=== PATIENT | female | born 1995 | race Caucasian/White ===

== ENCOUNTER 2017-10-05 19:11 | Observation (INO) ==
--- NOTE | 2017-10-05 17:43 | OB/GYN Progress Note ---
Date of Encounter: 10/05/17 Time of Encounter: 17:32 - Assessment and Plan (1) 35 weeks gestation of Current Visit: Yes Status: Acute Patient came to L&D for reported elevated blood pressure and heart rate from her OBs office. Blood pressure in L&D 128/85 HR 112 Patient will be started on IV fluids monitoring PIH labs Subjective - Subjective Interval history: Ms. Huntley is a 22 year old female at 30w5d presents to L&D for concerns of elevated blood pressure, elevated heart rate and decreased movement. Patient states that she saw her physician in the office and was sent here. She states that he blood pressure is not normally elevated. She reports decreased movement and states that she only feels the baby move about once every hour. She states that she has had some contractions that occur when she gets up or moves. She states that they occur about ever 5 minutes. Patient denies any leaking of fluid, vaginal bleeding but admits to vaginal discharge that has been yellowish and white. She states that she has been drinking of plenty of fluids and has been drinking about 5 bottles of water a day. Antepartum ROS: loss of fluid, vaginal bleeding, contractions (States that she is having contractions when she gets up or moves.), no movement normal ( States that she feels like there has been decreased movement over the past 4 days) Objective - Exam FHR: category 1 Auscultation: bilateral: normal Abdomen: Present: normal appearance, soft, gravid
[2017-10-05 18:05] LABS: Basophils % 0.3 %; Eosinophils # 0.4 K/mcL (0.0-0.6); Eosinophils % 3.1 %; Hematocrit 38.6 % (35.3-44.9); Hemoglobin 13.3 g/dL (11.5-15.4); Immature Granulocytes % 0.9 % (0-4); Lymphocytes # 2.7 K/mcL (0.6-4.6); Lymphocytes % 19.4 %; Mean Corpuscular HGB Conc 34.5 g/dL (31.6-35.5); Mean Corpuscular Hemoglobin 31.2 pg (28.0-33.3); Mean Corpuscular Volume 90.6 fL (83.0-100.0); Mean Platelet Volume 10.8 fL (9.4-12.4); Monocytes # 0.8 K/mcL (0.0-1.3); Monocytes % 5.7 %; Neutrophils # 9.8 K/mcL (1.6-8.9); Platelet Count 153 K/mcL (140-400); Red Blood Count 4.26 M/mcL (3.82-4.97); Red Cell Distribution Width 12.8 % (11.5-14.5); Segmented Neutrophils % 70.6 %
[2017-10-05] MEDS: Ringers Solution, Lactated 1,000 ML IVC SCH ×2 (18:11→20:50)
[2017-10-05 18:15] LABS: Protein/Creatinine Ratio,Urine 0.16 mg/mg (0-0.20)
[2017-10-05 18:21] LABS: Alanine Aminotransferase 12 Units/L (0-55); Aspartate Amino Transferase 13 Units/L (5-34); BUN/Creatinine Ratio 10 (6-26); Lactate Dehydrogenase 212 Units/L (159-327); Uric Acid 2.8 mg/dL (2.6-6.0); eGFR For African Americans > 60 (> 60); eGFR For Non-African Americans > 60 (> 60)
[2017-10-05 18:28] LABS: Blood Urea Nitrogen 5 mg/dL (7-20)
[2017-10-05 18:36] LABS: Amphetamine Screen,Urine Negative ng/mL (Cutoff=1000); Barbiturate Screen,Urine Negative ng/mL (Cutoff=200); Benzodiazepines Screen,Urine Negative ng/mL (Cutoff=200); Cannabinoid Screen,Urine Negative ng/mL (Cutoff = 50); Cocaine Screen,Urine Negative ng/mL (Cutoff= 300); Opiate Screen,Urine Negative ng/mL (Cutoff=300); Phencyclidine Screen,Urine Negative ng/mL (Cutoff=25)
[2017-10-05] MEDS ORDERED: NIFEdipine 10 MG CAPSULE PO ONE (20:40)
[2017-10-05] MEDS ORDERED: Betamethasone Acet/SodPhos 6 MG/ML MDV IM SCH (21:30)
--- NOTE | 2017-10-06 00:10 | OB Labor Progress Note ---
Date of Encounter: 10/06/17 Time of Encounter: 00:08 Labor Progress Note - Subjective Subjective: Pt doing ok, reports uc's less strong. No VB or LOF. - Cervix Cervix: /70/-2 - Heart Tones Heart Tones: RNST - Grand Tower Grand Tower: uc's q 3 min - Interventions Interventions: U/S AGA with normal AFV - Plan Plan: Pt on magnesium, and s/p first dose of b-meth. Will cont. to observe. If makes further cervical change will require transfer.
[2017-10-06] MEDS ORDERED: Magnesium Sulfate 20 gm/500mL 20 GM/500 ML IV.SOLN IVC SCH (00:45)
[2017-10-06] MEDS ORDERED: Calcium Gluconate 1,000 MG/10 ML VIAL IVPB ONE (01:02)
[2017-10-06 05:28] VITALS: BP 118/68
== END 2017-10-06 03:55 | disposition home or self-care (01) ==
LOC: 1NENULAB
PROVIDERS: ADMIT Obstetrics & Gynecology; ATTEND Obstetrics & Gynecology

== ENCOUNTER 2017-11-23 09:52 | Inpatient (IN) ==
[2017-11-23] MEDS ORDERED: Naloxone 0.4 MG/ML INJ IVP PRN (10:29)
[2017-11-23] MEDS ORDERED: Famotidine 20 MG/2 ML VIAL IVP PRN (10:29)
[2017-11-23] MEDS ORDERED: Ondansetron 4 MG/2 ML VIAL IVP PRN (10:29)
[2017-11-23] MEDS ORDERED: *HR* Nalbuphine 20 MG/ML AMPUL IVP PRN (10:29)
[2017-11-23] MEDS ORDERED: Metoclopramide 10 MG/2 ML VIAL IVP PRN (10:29)
[2017-11-23] MEDS ORDERED: Ringers Solution, Lactated 1,000 ML IVC SCH (10:30)
--- NOTE | 2017-11-23 11:00 | OB/GYN History & Physical ---
Date of Encounter: 11/23/17 Time of Encounter: 10:51 Assessment and Plan (1) 38 weeks gestation of Current visit: Yes Status: Acute Admit for labor, Intermittent monitoring. Reassess cervix in 2-3 hours. (2) History of delivery, currently in third trimester Current visit: Yes Status: Acute Pt had weekly Progesterone injections until 35 weeks. Given steroid x 2 doses at approximately 30 weeks of pregancy (3) Spontaneous rupture of membranes Current visit: Yes Status: Resolved + FERN and pooling Anticipate (4) NST (non-stress test) reactive Current visit: Yes Status: Acute FHR 155 bpm, moderate variability, +15x15 accels, no decels. Category I tracing. History of Present Illness Chief complaint: Rupture of membranes HPI: Ms. Huntley is a 22 year old female [id number] at 37w5d who arrives today with complaint of clear fluid leakage that started at 0640 this morning. Patient reports positive movement, small amount of bloody show with wiping and continued vaginal leakage. Pt reports a history of a 34 week delivery with last and has been on Progesterone injections since 18 weeks. Last dose at 35 weeks gestation. Patient also states she was given steroids at 30 weeks during this due to labor. Blood type A+ GBS negative HbSAG negative Rubella Immune Varicella Immune T. Pall negative Sterile speculum exam completed, mucous visualized in vault. Sample obtained for FERN, +FERN and pooling, equivocal nitrazine. Past Med Surg Social Fam HX - Past Medical History Source: patient Medical history: no medical history, other Psychiatric history: no psych history - Past Surgical History Surgical History: other (eardrum skin graft, T&A, laparoscopy for endometriosis) - Social History Smoking Status: Never smoker Smokeless Tobacco Status: No Alcohol use: none Drug use: none Current living situation: Home - Independent Activity Level: Independent ambulation Recent Out of Country Travel Within the Last 8 Weeks: No Exposure or Possible Exposure to Illness During Travel: No - Family History Father Adopted: No Living Status: Still Living Hx Family Cardiac Disorders: Yes (heart disease) Hx Family Respiratory Disorders: No Hx Family Cancer: No Hx Family GI Disorders: No Hx Family Genitourinary Disorders: No Hx Family Endocrine Disorder: No Hx Family Musculoskeletal Disorders: No Hx Family Neuromuscular Disorders: No Hx Family Neurologic Disorders: No Hx Family HEENT Disorders: No Hx Family Autoimmune Disorders: No Hx Family Reproductive Disorders: No Hx Family Psychosocial Disorders: No Hx Family Medical Disorders: No Obstetrical History - Pregnancies : 3 Para: 2 Term: 1 : 1 Ab's: 0 Livin Medications and Allergies Vit/FA 1 each PO DAILY 10/05/17 [History] 3 Allergy/AdvReac Type Severity Reaction Status Date / Time Amoxicillin Allergy Hives Verified 06/08/17 18:26 ciprofloxacin Allergy Rash Verified 06/08/17 18:26 dexmethylphenidate Allergy See Verified 06/08/17 18:26 Comments vancomycin Allergy Hives Verified 06/08/17 18:26 Exam - Constitutional Constitutional: well developed, well nourished, no acute distress, average body habitus - Neck Neck exam: full ROM, normal inspection - Cardiovascular Cardiovascular exam: RRR, +S1, +S2 - Breasts Breast: bilateral: normal - Abdomen Abdomen: Present: bowel sounds normal, gravid, non tender - Extremities Extremities exam: full ROM, normal inspection Deep Tendon Reflex Grade: 2+ Normal - Vulva Vulva: bilateral: normal - Vagina Vagina: Present: normal moisture, discharge - Cervix Dilation: 3 (Jamilah Greenberg RN) Effacement: 60 Station: -3 - Uterus Uterus exam: Present: normal size - Comments Comments: FHR 155 bpm, moderate variability, +15x15 accels, no decels. Irregular contractions. Results All other labs normal. - VTE Reasons for not Prescribing Prophylaxis: Treatment not Indicated - Low risk for VTE
[2017-11-23 11:02] LABS: Basophils % 0.4 %; Eosinophils # 0.1 K/mcL (0.0-0.6); Eosinophils % 1.5 %; Hematocrit 36.6 % (35.3-44.9); Hemoglobin 12.6 g/dL (11.5-15.4); Immature Granulocytes % 1.3 % (0-4); Lymphocytes # 1.5 K/mcL (0.6-4.6); Lymphocytes % 18.8 %; Mean Corpuscular HGB Conc 34.4 g/dL (31.6-35.5); Mean Corpuscular Hemoglobin 30.9 pg (28.0-33.3); Mean Corpuscular Volume 89.7 fL (83.0-100.0); Mean Platelet Volume 10.8 fL (9.4-12.4); Monocytes # 0.5 K/mcL (0.0-1.3); Monocytes % 5.9 %; Neutrophils # 5.7 K/mcL (1.6-8.9); Platelet Count 173 K/mcL (140-400); Red Blood Count 4.08 M/mcL (3.82-4.97); Segmented Neutrophils % 72.1 %
[2017-11-23 11:10] LABS: Amphetamine Screen,Urine Negative ng/mL (Cutoff=1000); Barbiturate Screen,Urine Negative ng/mL (Cutoff=200); Benzodiazepines Screen,Urine Negative ng/mL (Cutoff=200); Cannabinoid Screen,Urine Negative ng/mL (Cutoff = 50); Cocaine Screen,Urine Negative ng/mL (Cutoff= 300); Opiate Screen,Urine Negative ng/mL (Cutoff=300); Phencyclidine Screen,Urine Negative ng/mL (Cutoff=25)
--- NOTE | 2017-11-23 11:26 | Anesthesia Evaluation PreOp ---
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: Denies Any Significant HX Other Medical History: Denies Any Significant HX Anesthesia History: No Prior Anesthetic Complications, Past Anesthesia (T&A, laparoscopy for endometriosis, skin graft left ear.) : Yes Alcohol Use: none Drug use: none Medications and Allergies Vit/FA 1 each PO DAILY 10/05/17 [History] 3 Allergy/AdvReac Type Severity Reaction Status Date / Time Amoxicillin Allergy Hives Verified 06/08/17 18:26 ciprofloxacin Allergy Rash Verified 06/08/17 18:26 dexmethylphenidate Allergy See Verified 06/08/17 18:26 Comments vancomycin Allergy Hives Verified 06/08/17 18:26 - Meds/Allergy Pre-op Review Medications Reviewed: Yes Allergies Reviewed: Yes Beta Blockers on Current Med List: No Anesthesia Results - Labs 11/23/17 10:40 Anesthesia Exam BP 130/82 P 120 T 98.2 R 16 Height: 5'0" Weight: 83.5kg NPO (# of Hours): 4 Pain Scale: 4 Pain Scale Used: Numeric (1 - 10) - HEENT Pupil (Motor): Pupils equal Mallampati: II Teeth: Normal Oral Opening: Greater than 3 - PLATEN PRESS OPERATOR APPRENTICE LOC: Oriented PLATEN PRESS OPERATOR APPRENTICE Motor: Normal RUE, Normal LUE, Normal RLE, Normal LLE, Normal Face PLATEN PRESS OPERATOR APPRENTICE Sensory: Normal: RUE, LUE, RLE, LLE, Face - Cardiac Rhythm: Regular Murmur: None JVD: No Carotid Bruit: No - Pulmonary Breath Sounds: bilateral Clear Respiratory Effort: Symmetrical Anesthesia Assess/Plan ASA Score: 2 Modified Charity Scale for Level of Consciousness: Cooperative, oriented, and tranquil Anesthetic Plan: Regional Autologous Blood: No Monitoring Plan: Standard Monitors Recovery Plan: Other
--- NOTE | 2017-11-23 13:00 | OB Labor Progress Note ---
Date of Encounter: 11/23/17 Time of Encounter: 12:58 Labor Progress Note - Subjective Subjective: Pt with minimal discomfort at this time. - Cervix Cervix: 4/75/-1 - Heart Tones Heart Tones: Category I - [place]: 1-3 minutes - Interventions Interventions: AROM of forebag for small amount clear fluid. - Plan Plan: Continue intermittent monitoring. Allow pt to ambulate and use birthing ball. Continue expectant management. Anticipate .
[2017-11-23] MEDS ORDERED: Oxytocin 20 units/ LR 1000 mL 20 UNIT/1,000 ML BAG IVC ONE (17:33)
[2017-11-23] MEDS ORDERED: Ibuprofen 600 MG TABLET PO ONE (18:24)
--- NOTE | 2017-11-23 18:29 | OB/GYN Procedure Note ---
Delivery - Delivery Date: 11/23/17 Provider: Emely Edmond Intrapartum events: none Delivery induction: none Delivery monitor: external FHT, external uterine Anesthesia: none Estimated Blood Loss: 100 - (s) A Infant Delivery Date: 11/23/17 Infant Delivery Time: 18:05 Presentation: vertex Position: OA Route of delivery: Gender: Male Viability: Viable Pounds: 6 Ounces: 6 Weight Gram: 2.89 kg at 1 minute: 8 at 5 mins: 9 Shoulder Dystocia: not encountered Specimens collected: cord blood Placenta: spontaneous Cord: 3 umbilical vessels - Repair Episiotomy: none Laceration Description: None - Complications Delivery complications: none Delivery comments: of vigorous viable male in the OA position. Shoulders delivered easily. No nuchal. No meconium. No shoulder dystosia. placed on mom's belly. Apgars 8/9 at 1 and 5 minutes. Cord double clamped and cut after pulsations ceased. Placenta delivered spontaneously appears grossly intact. 3 vessel cord present. Upon peritoneal inspection, no lacerations present. Fundus firm and at u/2. EBL 100ml. Infant delivered by Shabnam Edmond. Dr. Pennie Black present. Dr. Salcdio notified. and mother stable in recovery. Pericare instructions given to patient. - Disposition Mom disposition: stable in LDR disposition: stable in LDR
[2017-11-23] MEDS ORDERED: Oxytocin 20 units/ LR 1000 mL 20 UNIT/1,000 ML BAG IVC SCH (19:48)
[2017-11-23] MEDS ORDERED: Ibuprofen 600 MG TABLET PO PRN (19:48)
[2017-11-23] MEDS ORDERED: Acetaminophen 325 MG TABLET PO PRN (19:48)
[2017-11-23] MEDS ORDERED: Lanolin 7 G OINT...G. TP PRN (19:48)
[2017-11-23] MEDS ORDERED: Measles/Mumps/Rubella Vacc 0.5 ML VIAL SQ PRN (19:48)
[2017-11-24] MEDS ORDERED: Prenatal Vit/FA 1 EACH TABLET PO SCH (09:00)
--- NOTE | 2017-11-24 10:19 | Discharge Summary ---
Date of Encounter: 11/24/17 Time of Encounter: 10:13 - Discharge Diagnosis (1) Breast feeding status of mother Priority: Secondary Status: Acute (2) Vaginal delivery Priority: Primary Status: Acute Comments: Pt meets all requirements for discharge. 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 11/24/17 [Rx] Sertraline [Zoloft] 25 mg PO DAILY #30 tablet 11/24/17 [Rx] Allergies/Adverse Reactions: 3 Allergy/AdvReac Type Severity Reaction Status Date / Time Amoxicillin Allergy Hives Verified 06/08/17 18:26 ciprofloxacin Allergy Rash Verified 06/08/17 18:26 dexmethylphenidate Allergy See Verified 06/08/17 18:26 Comments vancomycin Allergy Hives Verified 06/08/17 18:26 Data Procedures and tests throughout hospitalization: Laboratory Tests 11/23/17 11/23/17 10:40 10:40 WBC 7.9 RBC 4.08 Hgb 12.6 Hct 36.6 MCV 89.7 MCH 30.9 MCHC 34.4 RDW 13.0 Plt Count 173 MPV 10.8 Immature Gran % 1.3 Seg Neutrophils % 72.1 Lymphocytes % 18.8 Monocytes % 5.9 Eosinophils % 1.5 Basophils % 0.4 Neutrophils # 5.7 Lymphocytes # 1.5 Monocytes # 0.5 Eosinophils # 0.1 Basophils # 0.0 Urine Opiates Screen Negative Ur Barbiturates Screen Negative Ur Phencyclidine Scrn Negative Ur Amphetamines Screen Negative U Benzodiazepines Scrn Negative Urine Cocaine Screen Negative U Marijuana (THC) Screen Negative Labs on day of discharge: Labs from last 24 hours 11/23/17 11/23/17 10:40 10:40 WBC 7.9 RBC 4.08 Hgb 12.6 Hct 36.6 MCV 89.7 MCH 30.9 MCHC 34.4 RDW 13.0 Plt Count 173 MPV 10.8 Immature Gran % 1.3 Seg Neutrophils % 72.1 Lymphocytes % 18.8 Monocytes % 5.9 Eosinophils % 1.5 Basophils % 0.4 Neutrophils # 5.7 Lymphocytes # 1.5 Monocytes # 0.5 Eosinophils # 0.1 Basophils # 0.0 Urine Opiates Screen Negative Ur Barbiturates Screen Negative Ur Phencyclidine Scrn Negative Ur Amphetamines Screen Negative U Benzodiazepines Scrn Negative Urine Cocaine Screen Negative U Marijuana (THC) Screen Negative Date of admission: 11/23/17 09:52 Primary care physician: Mayra Mcleod MD Consults: 11/23/17 19:48 Consult to Police [employer] [CONS] Routine Comment: Vaginal delivery, consult needed Discharging clinician: Lucero Guillory Anticipated date of discharge: 11/24/17 - Patient Status Disposition: Home, Self-Care Condition: Good Functional capacity at discharge: independent ambulation Overall status at discharge: patient is progressing back to baseline - Discharge Instructions Follow Up With: Mayra Mcleod MD [Primary Care Provider] - Connie Field CNM [Advanced Practice Nurse] - - Diet and Activity Activity: increase activity as tolerated Diet: regular diet Hospital Course Reason for admission: IUP at term Delivery: Episiotomy: none Laceration: none Other procedures: none complications: none Discharge diagnosis: IUP at term delivered baby: male Time Attestation: Total time spent providing and/or coordinating discharge services: Time Spent: Less than 30 minutes Exam - Constitutional Vitals: Temp Pulse Resp BP Pulse Ox 98.0 F 87 16 113/71 98 11/24/17 08:00 11/24/17 08:00 11/24/17 08:00 11/24/17 08:00 11/24/17 08:00 General appearance IM: A&O X 3, no acute distress - Respiratory Respiratory exam: Present: CTAB - Cardiovascular Cardiovascular exam IM: Present: RRR, +S1, +S2 - GI/Abdominal GI/Abdominal exam IM: normal bowel sounds - Rectal Rectal exam: deferred - Uterine Tone: Firm Uterus Position: 1 Finger Below Umbilicus, Midline - Extremities Exam Extremities exam IM: Present: normal inspection - Neurological Exam Neurological exam: alert, oriented X3
[2017-11-24 16:30] VITALS: BP 109/73
== END 2017-11-24 19:34 | disposition home or self-care (01) | DRG 560 ==
LOC: 1NENULAB → OBSVTOIN 09:52 → 1NENUOBS 22:19
PROVIDERS: ADMIT Student in an Organized Health Care Education/Training Program; ATTEND Student in an Organized Health Care Education/Training Program

== ENCOUNTER 2020-01-10 14:07 | Inpatient (IN) ==
[2020-01-10] MEDS ORDERED: Famotidine 20 MG/2 ML VIAL IVP PRN (16:11)
[2020-01-10] MEDS ORDERED: Ondansetron 4 MG/2 ML VIAL IVP PRN (16:11)
[2020-01-10] MEDS ORDERED: Naloxone 0.4 MG/ML INJ IVP PRN (16:11)
[2020-01-10] MEDS ORDERED: Metoclopramide 10 MG/2 ML VIAL IVP PRN (16:11)
[2020-01-10] MEDS ORDERED: *HR* FentaNYL (PF) 100 MCG/2 ML VIAL IVP PRN (16:11)
[2020-01-10] MEDS ORDERED: Ringers Solution, Lactated 1,000 ML IVC SCH (16:15)
[2020-01-10 17:26] LABS: Basophils % 0.4 %; Eosinophils # 0.1 K/mcL (0.0-0.6); Eosinophils % 0.6 %; Hematocrit 36.7 % (35.3-44.9); Hemoglobin 12.2 g/dL (11.5-15.4); Immature Granulocytes % 1.3 % (0-4); Lymphocytes # 1.5 K/mcL (0.6-4.6); Lymphocytes % 17.3 %; Mean Corpuscular HGB Conc 33.2 g/dL (31.6-35.5); Mean Corpuscular Hemoglobin 30.4 pg (28.0-33.3); Mean Corpuscular Volume 91.5 fL (83.0-100.0); Mean Platelet Volume 10.9 fL (9.4-12.4); Monocytes # 0.5 K/mcL (0.0-1.3); Monocytes % 6.1 %; Neutrophils # 6.3 K/mcL (1.6-8.9); Platelet Count 232 K/mcL (140-400); Red Blood Count 4.01 M/mcL (3.82-4.97); Red Cell Distribution Width 12.8 % (11.5-14.5); Segmented Neutrophils % 74.3 %; White Blood Count 8.5 K/mcL (4.3-11.1)
[2020-01-10 18:04] LABS: Amphetamine Screen,Urine Negative ng/mL (Cutoff=1000); Barbiturate Screen,Urine Negative ng/mL (Cutoff=200); Benzodiazepines Screen,Urine Negative ng/mL (Cutoff=200); Cannabinoid Screen,Urine Negative ng/mL (Cutoff = 50); Cocaine Screen,Urine Negative ng/mL (Cutoff= 300); Opiate Screen,Urine Negative ng/mL (Cutoff=300); Phencyclidine Screen,Urine Negative ng/mL (Cutoff=25)
[2020-01-10] MEDS ORDERED: Oxytocin 20 units/ LR 1000 mL 20 UNIT/1,000 ML BAG IVC SCH ×2 (18:45→20:00)
[2020-01-10] MEDS ORDERED: Lidocaine 1% 20 ML MDV ONE (19:28)
[2020-01-10] MEDS ORDERED: Lanolin 7 G OINT...G. TP PRN (19:56)
[2020-01-10] MEDS ORDERED: Acetaminophen 325 MG TABLET PO PRN (19:56)
[2020-01-10] MEDS ORDERED: Ibuprofen 600 MG TABLET PO PRN (19:56)
[2020-01-10] MEDS ORDERED: Benzocaine/Menthol 56 GM AEROSOL SPRAY TP PRN (19:56)
[2020-01-10] MEDS ORDERED: Rho Immune Globulin 1,500 UNIT SYRINGE IM PRN (19:56)
[2020-01-11 07:52] VITALS: BP 110/71
[2020-01-11] MEDS ORDERED: Prenatal Vit/FA 1 EACH TABLET PO SCH (09:00)
== END 2020-01-11 17:02 | disposition home or self-care (01) ==
LOC: 1NENULAB → 1NENUOBS 22:36
PROVIDERS: ADMIT Registered Nurse; ATTEND Registered Nurse